=== PATIENT | male | born 1970 | race Two or more races ===

== ENCOUNTER 2016-06-19 18:13 | Emergency (ER) | payer OTHER, SELFPAY ==
[~2016-06-19] VITALS: Ht 165.1 cm; Wt 114.3 kg
[2016-06-19 18:14] VITALS: BP 156/98
[2016-06-19] MEDS ORDERED: SODIUM CHLORIDE FLUSH 10ML SYR IVF ONE (19:30)
[2016-06-19 19:35] LABS: ASPARTATE AMINO TRANSFERASE 17 U/L (15-37); BLOOD UREA NITROGEN 16 mg/dL (7-18)
[2016-06-19 19:41] LABS: IS PT STATUS REG ER OR PRE ER? YES
[2016-06-19] MEDS ORDERED: FUROSEMIDE 20 MG/2 ML ONE (19:52)
[2016-06-19] MEDS ORDERED: ASPIRIN 81 MG TABLET CHEW ONE (19:52)
[2016-06-19] MEDS ORDERED: ENALAPRILAT 1.25 MG/ML, 2ML ONE (19:52)
[2016-06-19] MEDS ORDERED: ASPIRIN 81 MG TABLET CHEW PO ONE (20:00)
[2016-06-19] MEDS ORDERED: FUROSEMIDE 40 MG/4 ML IV ONE (20:00)
[2016-06-19] MEDS ORDERED: ENALAPRILAT 1.25 MG/ML, 2ML IV ONE (20:00)
== END 2016-06-19 21:56 | disposition home or self-care (01) ==
LOC: ED 21:50
DX: I50.30 Unspecified diastolic (congestive) heart failure (principal); I11.0 Hypertensive heart disease with heart failure
CPT/HCPCS: 36415; 71010; 80053; 83735; 83880; 84443; 84484; 85025; 85610; 93005; 96374; 96375; 99285; J1940

== ENCOUNTER 2016-06-23 18:43 | Emergency (ER) | payer SELFPAY ==
[~2016-06-23] VITALS: Ht 165.1 cm; Wt 111.0 kg
[2016-06-23] MEDS ORDERED: ASPIRIN 81 MG TABLET CHEW PO ONE (19:30)
[2016-06-23 20:06] LABS: ASPARTATE AMINO TRANSFERASE 15 U/L (15-37); BLOOD UREA NITROGEN 24 mg/dL (7-18)
[2016-06-23 20:12] LABS: IS PT STATUS REG ER OR PRE ER? YES
[2016-06-23] MEDS ORDERED: ASPIRIN 81 MG TABLET CHEW ONE (20:31)
[2016-06-23 20:36] LABS: DIFF TOTAL CELLS COUNTED 100 CELL DIFF
[2016-06-23 20:38] LABS: VERIFY COUNTS? YES
[2016-06-23 21:26] VITALS: BP 137/81
[2016-06-23] MEDS ORDERED: FURO20TA3 PO (21:28)
[2016-06-23] MEDS ORDERED: SPIR25TA3 PO (21:28)
[2016-06-23] MEDS ORDERED: LOSA25TA5 PO (21:28)
[2016-06-23] MEDS ORDERED: PENI500T PO (21:28)
== END 2016-06-23 22:44 | disposition home or self-care (01) ==
LOC: ED 22:38
DX: R07.89 Other chest pain (principal); R06.00 Dyspnea, unspecified; I11.0 Hypertensive heart disease with heart failure
CPT/HCPCS: 36415; 71010; 80053; 83880; 84484; 85025; 93005

== ENCOUNTER 2016-07-03 04:34 | Emergency (ER) | payer SELFPAY ==
[~2016-07-03] VITALS: Ht 165.1 cm; Wt 112.8 kg
[~2016-07-03 04:34] MED LIST: FURO20TA3 PO; LOSA25TA5 PO; PENI500T PO; SPIR25TA3 PO
[2016-07-03 05:41] VITALS: BP 116/70
== END 2016-07-03 06:55 | disposition left against medical advice (07) ==
LOC: ED 05:23
DX: R06.02 Shortness of breath (principal)
CPT/HCPCS: 93005; 99281

== ENCOUNTER 2016-07-12 16:08 | Emergency (ER) | payer MEDICAID ==
[~2016-07-12] VITALS: Ht 165.1 cm; Wt 110.6 kg
[2016-07-12] MEDS ORDERED: SODIUM CHLORIDE FLUSH 10ML SYR IVF ONE (17:00)
[2016-07-12] MEDS ORDERED: ASPIRIN 81 MG TABLET CHEW PO ONE (17:00)
[2016-07-12] MEDS ORDERED: ASPIRIN 81 MG TABLET CHEW ONE (17:06)
[2016-07-12 18:06] LABS: BLOOD UREA NITROGEN 17 mg/dL (7-18)
[2016-07-12 18:11] LABS: ASPARTATE AMINO TRANSFERASE 20 U/L (15-37); IS PT STATUS REG ER OR PRE ER? YES
[2016-07-12 18:28] VITALS: BP 148/76
== END 2016-07-12 18:34 | disposition home or self-care (01) ==
LOC: ED 18:28
DX: I50.30 Unspecified diastolic (congestive) heart failure (principal); I11.0 Hypertensive heart disease with heart failure; Z76.0 Encounter for issue of repeat prescription
CPT/HCPCS: 36415; 71010; 80053; 83880; 84484; 85025; 93005; 99285